=== PATIENT | female | born 1980 | race Caucasian/White ===

== ENCOUNTER 2023-06-19 02:22 | Emergency (ER) | payer OTHER, MEDICAID, SELFPAY ==
[2023-06-19 02:38] VITALS: BP 183/118; PULSE 112; RESP 18; TEMP 36.8; O2SAT 98; BMI 25.6
--- NOTE | 2023-06-19 03:06 | DI.US.S_ITS ---
PROCEDURE: US PELVIC COMPLETE INDICATIONS: HEAVY BLEEDING X 12 DAYS. LAST PERIOD CEASED 10 DAYS PRIOR. PAIN. HISTORY OF OVARIAN CYSTS. TECHNIQUE: Real-time scanning was performed of the pelvic organs, with image documentation. Additional endovaginal scanning was necessary due to incomplete visualization of the adnexal and endometrial structures by transabdominal scanning. COMPARISON: None. FINDINGS: Uterus: Uterus is anteverted and normal in size at 9.2 x 5.3 x 4.5 cm. The myometrium is homogeneous. The endometrium measures 5.9 mm combined thickness. Heterogenicity of the a mildly atrium at the junction of room, suspicious for adenomyosis. Ovaries: The right ovary measures 3.1 x 2.6 x 2.2 cm, with a calculated ovarian volume of 9.2 cc. The left ovary measures 4.0 x 3.4 x 2.0 cm, with a calculated ovarian volume of 14.1 cc. The ovaries have a normal sonographic appearance. Bilateral complex renal cysts. There is a 1.2 x 1.0 x 1.1 cm complex cyst in right ovary. A 1.7 x 1.4 x 0.9 cm complex cyst is in left ovary. Less than 12 follicles can be seen in each ovary. No adnexal masses are seen. Other: No pathologic free abdominal or pelvic fluid. IMPRESSION: 1. Suspect adenomyosis with ill-defined junctional zone of uterus. 2. Small complex cysts in ovaries bilaterally. Consider follow-up ultrasound in 6 weeks. 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 We strive to produce accurate, complete, and clear reports of imaging services. To assist us in improving patient care, this report was composed using standard report templates and voice recognition software. Therefore, it may contain abnormal punctuation, insertions and/or omissions. Occasional wrong-word or sound-alike substitutions may occur. Though we review the report and make efforts to correct it, we do recommend that the report be read carefully in proper context to recognize any text inaccuracies. Dictated by: Abdelrahman Johnson M.D. on 06/19/2023 at 8:32 Approved by: Abdelrahman Johnson M.D. on 06/19/2023 at 8:35
[2023-06-19 03:09] LABS: Hyaline Casts Urine 0-1/LPF; Mucus Urine 2+ (Negative); RBC Urine 1-5/HPF (0-5/HPF); Squamous Epithelial Cell Urine 5-10 /HPF (0-5/HPF); WBC Urine 1-5/HPF (0-5/HPF)
[2023-06-19 03:10] LABS: Bacteria Urine Few (2-10); Culture Indicated Urine Cult Not Indicated
[2023-06-19 03:24] LABS: Add Manual Diff / Slide Review NO; Basophils Absolute Auto 100 /uL (0-100); Basophils Percent Auto 1.2 % (0-2); Eosinophils Absolute Auto 500 /uL (0-450); Eosinophils Percent Auto 5.7 % (2-4); Hematocrit 29.7 % (36-46); Hemoglobin 9.3 g/dL (12.0-16.0); Lymphocytes Absolute Auto 2400 /uL (1100-4500); Mean Corpuscular HGB Conc 31.3 % (30-36); Mean Corpuscular Hemoglobin 22.1 PG (26-34); Mean Corpuscular Volume 70.6 fL (80-100); Monocytes Absolute Auto 500 /uL (0-900); Monocytes Percent Auto 5.2 % (3-14); Neutrophils Absolute Auto 5600 /uL (1500-7000); Neutrophils Percent Auto 61.9 % (50-75); Platelet Count 323 X10^3/uL (150-400); Red Cell Distribution Width 19.8 % (11.6-14.8)
[2023-06-19 03:31] LABS: Alanine Aminotransferase 29 IU/L (<35); Albumin 4.5 g/dL (3.5-5.0); Albumin Globulin Ratio 1.5 (1.0-2.8); Alkaline Phosphatase 94 U/L (38-126); Aspartate Aminotransferase 24 IU/L (14-36); BUN Creatinine Ratio 40.6 (6-22); Bilirubin Total 0.3 mg/dL (0.2-1.3); Blood Urea Nitrogen 26 mg/dL (7-17); Calcium 9.4 mg/dL (8.4-10.2); Carbon Dioxide 26 mmol/L (22-32); Chloride 104 mmol/L (98-107); Estimated Glomerular Filt Rate > 60 mL/min (>60); Globulin 3.1 g/dL (1.7-4.1); Glucose 99 mg/dL (70-100); HEMOLYSIS < 15 (0-50); Potassium 3.7 mmol/L (3.4-5.1); Sodium 136 mmol/L (137-145); Total Protein 7.6 g/dL (6.3-8.2)
--- NOTE | 2023-06-19 03:37 | ED_ITS ---
HPI - Female Genitourinary General Chief complaint: Vaginal Bleeding Stated complaint: vaginal bleeding 2 weeks Time Seen by Provider: 06/19/23 02:41 Source: patient Mode of arrival: Ambulatory History of Present Illness HPI Narrative: Patient is a 42-year-old female without significant past medical history presenting today with vaginal bleeding ongoing for the last 2 weeks. She says this has been constant going through out to pass or tampons daily mild clots minimal cramping. She occasionally has palpitations no real dizziness ligh theadedness or passing out. She denies any worsening symptoms this evening. She has no PCP she is not been seen for this previously Related Data Previous Rx's Medication Instructions Recorded medroxyprogesterone 10 mg tablet 10 mg PO DAILY #34 tabs 06/19/23 (Provera) Allergies Allergy/AdvReac Type Severity Reaction Status Date / Time divalproex sodium Allergy Rash Verified 06/19/23 02:45 [From Depakote] Review of Systems Review of Systems ROS Unobtainable: All systems reviewed & are unremarkable except as noted in HPI and below Exam Initial Vital Signs Initial Vital Signs: Vital Signs Temperature 98.2 F 06/19/23 02:38 Pulse Rate 112 H 06/19/23 02:38 Respiratory Rate 18 06/19/23 02:38 Blood Pressure 183/118 H 06/19/23 02:38 Pulse Oximetry 98 06/19/23 02:38 Oxygen Delivery Method Room Air 06/19/23 02:38 GENERAL: Alert well-appearing 42-year-old female coloring and in no acute distress. HEENT: Head atraumatic,EOMI, pupils reactive, face symmetric, moist mucous membranes CARDIOVASCULAR: No cyanosis peripheral pulses intact RESPIRATORY: No conversational dyspnea ABDOMEN: Soft, minimal tenderness no guarding no rebound no Jasso's sign or epigastric : No CVA tenderness EXTREMITIES: Normal range of motion, no clubbing or edema. Neurovascularly intact NEUROLOGICAL: Alert and oriented x4. SKIN: Warm, dry, no laceration, no petechiae, no rashes or lesions. Course Orders Ordered: ED Orders 06/19/23 02:52 Urine Microscopic Stat 06/19/23 03:06 US pelvic complete Stat 06/19/23 03:14 CBC Auto Diff [Complete Blood Count AUTO DIFF] Stat CMP [Comprehensive Metabolic Panel] Stat Vital Signs Vital signs: Vital Signs - 8 hr 06/19/23 02:38 06/19/23 05:00 Temperature 98.2 F Pulse Rate 112 H 93 H Respiratory Rate 18 16 Blood Pressure 183/118 H 160/99 H Pulse Oximetry 98 98 Oxygen Delivery Method Room Air Room Air MDM - Female Genitourinary Lab Data 06/19/23 03:14 06/19/23 03:14 Labs: Lab Results 06/19/23 06/19/23 06/19/23 Range/Units 02:52 03:14 03:14 WBC 9.0 (4.5-11.0) X10^3/uL RBC 4.20 (4.0-5.2) X10^6/uL Hgb 9.3 L (12.0-16.0) g/dL Hct 29.7 L (36-46) % MCV 70.6 L (80-100) fL MCH 22.1 L (26-34) PG MCHC 31.3 (30-36) % RDW 19.8 H (11.6-14.8) % Plt Count 323 (150-400) X10^3/uL Neut % (Auto) 61.9 (50-75) % Lymph % (Auto) 26.0 (25-40) % [place] % (Auto) 5.2 (3-14) % Eos % (Auto) 5.7 H (2-4) % Baso % (Auto) 1.2 (0-2) % Neut # (Auto) 5600 (2874-9160) /uL Lymph # (Auto) 2400 (0396-2594) /uL [place] # (Auto) 500 (0-900) /uL Eos # (Auto) 500 H (0-450) /uL Baso # (Auto) 100 (0-100) /uL Sodium 136 L (137-145) mmol/L Potassium 3.7 (3.4-5.1) mmol/L Chloride 104 (98-107) mmol/L Carbon Dioxide 26 (22-32) mmol/L BUN 26 H (7-17) mg/dL Creatinine 0.64 (0.52-1.04) mg/dL Estimated GFR > 60 (>60) mL/min BUN/Creatinine Ratio 40.6 H (6-22) Glucose 99 (70-100) mg/dL Calcium 9.4 (8.4-10.2) mg/dL Total Bilirubin 0.3 (0.2-1.3) mg/dL AST 24 (14-36) IU/L ALT 29 (<35) IU/L Alkaline Phosphatase 94 (38-126) U/L Total Protein 7.6 (6.3-8.2) g/dL Albumin 4.5 (3.5-5.0) g/dL Globulin 3.1 (1.7-4.1) g/dL Albumin/Globulin Ratio 1.5 (1.0-2.8) Urine RBC 1-5/hpf (0-5/HPF) Urine WBC 1-5/hpf (0-5/HPF) Ur Squamous Epith Cells 5-10 /hpf H (0-5/HPF) Urine Bacteria Few (2-10) H (None) Hyaline Casts 0-1/lpf (None) Urine Mucus 2+ H (Negative) Ur Culture Indicated? Cult not indicated Point of Care Testing Test Results Negative Urine Dip Bedside Urine Glucose Negative Bedside Urine Bilirubin - Negative Bedside Urine Ketone - Negative Urine Specific [place] 1.015 Bedside Urine Occult Blood +/- Bedside Urine pH 6.0 Bedside Urine Protein - Negative Bedside Urine Urobilinogen - Negative Bedside Urine Nitrite - Negative Bedside Urine Leukocytes - Negative Esterase Imaging Data US - STUDENT ACTIVITIES DIRECTOR: Radiologist's Impression: Preliminary report: Heterogenicity of uterine myometrium with poor definition of endometrial myometrial junction findings are nonspecific this can be in the setting of adenomyosis. Normal appearance of endometrium in both MDM Narrative Medical decision making narrative: Patient presents today with ongoing vaginal bleeding not any significantly worse tonight. She is found to be in an anemic with hemoglobin 9.3 hematocrit 29.7 and MCV of 70.6 slightly and iron-deficiency anemia. Electrolytes are within normal limits. She is hemodynamically stable although initially a little tachycardic heart rate 112 which improved to 93 during her ED stay without any sort of intervention. Not hypotensive. No indication for blood transfusion at this time. Ultrasound suggests adenomyosis. She reports ongoing bleeding for 2 weeks it is likely been ongoing longer than that. 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 Urine is negative. Discharge Plan Departure Patient Disposition: Home Clinical Impression: Vaginal bleeding, Adenomyosis, Anemia Instructions: DI for Vaginal Bleeding Activity Restrictions/Additional Instructions: *You have been diagnosed with vaginal bleeding,anemia. *What to do: At this time please follow-up with OBGYN for further evaluation. I do recommend that you have blood levels rechecked and monitor *Continue to take medications as directed Provera 20 mg 3 times a day for 48 hours send 20 mg every 12 hours for 48 hours then 20 mg once daily Continue iron supplements *Follow up with your primary care provider in 2-3 days or call [phone] *Return to ER if you should have increased vaginal bleeding more than 2 super pads or tampons in 1 hour, increasing pain dizziness lightheadedness or passing or any new, worsening or concerning symptoms Prescriptions: New medroxyprogesterone [Provera] 10 mg tablet 10 mg PO DAILY Qty: 34 0RF Rx Instructions: 2 tab q8hr x 48hr. 2 tab q12hr x 48hr. 2 tab qd x 7 days Referrals: Kalli Morin MD [Physician] - Vannessa Damian MD [Physician] - Red Borden MD [Physician] - Stand Alone Forms: Patient Portal/API
[2023-06-19 05:00] VITALS: BP 160/99; PULSE 93; RESP 16; O2SAT 98
== END 2023-06-19 05:00 | disposition home or self-care (01) ==
PROVIDERS: Emergency Provider Emergency Medicine
DX: N93.9 Abnormal uterine and vaginal bleeding, unspecified (principal); N80.03 Adenomyosis of the uterus; D64.9 Anemia, unspecified
CPT/HCPCS: 36415; 76830; 76856; 80053; 81003; 81015; 81025; 85025; 99283; 99284